=== PATIENT | female | born 1945 | race Caucasian/White ===

== ENCOUNTER 2020-11-27 08:26 | Inpatient (IN) | payer MEDICARE, OTHER ==
[~2020-11-27] VITALS: Ht 167.6 cm; Wt 74.5 kg
[~2020-11-27 08:26] MED LIST: Aspirin EC81 MG PO; Crestor20 MG PO; DEXILANT60 MG PO; LOSARTAN POTASS25 MG PO; MEGA MULTI FOR1 EACH PO; PARO20 PO; Vitamin D2000 UNIT PO
[2020-11-27 09:02] LABS: BASOPHILS ABSOLUTE AUTO 0.01 K/mm3 (0.00-0.23); BASOPHILS PERCENT AUTO 0 % (0-2); EOSINOPHILS ABSOLUTE AUTO 0.01 K/mm3 (0.00-0.68); EOSINOPHILS PERCENT AUTO 0 % (0-6); Hematocrit 37.3 % (33.0-51.0); Hemoglobin 12.8 g/dL (11.5-16.0); IMMATURE GRAN ABSOLUTE AUTO 0.03 K/mm3 (0.00-0.10); IMMATURE GRAN PERCENT AUTO 1 % (0-1); LYMPHOCYTES ABSOLUTE AUTO 0.85 K/mm3 (0.84-5.20); LYMPHOCYTES PERCENT AUTO 17 % (21-46); MONOCYTES PERCENT AUTO 8 % (4-13); Mean Corpuscular HGB 30.3 pg (26.0-34.0); Mean Corpuscular HGB Conc 34.3 g/dL (31.5-36.5); Mean Corpuscular Volume 88 fL (80-100); Mean Platelet Volume 8.9 fL (9.1-12.4); NEUTROPHILS ABSOLUTE AUTO 3.86 K/mm3 (1.96-9.15); NEUTROPHILS PERCENT AUTO 75 % (41-73); Platelet Count 177 K/mm3 (150-400); RDW Coefficient Variation 12.4 % (11.7-14.2); RDW Standard Deviation 39.8 fL (35.1-46.3); Red Blood Cell Count 4.22 M/mm3 (3.80-5.20); White Blood Cell Count 5.16 K/mm3 (4.00-11.30)
[2020-11-27] MEDS ORDERED: ATORVASTATIN CA20 MG PO (09:09)
[2020-11-27] MEDS ORDERED: Cetirizine HCl10 MG PO (09:09)
[2020-11-27 09:34] LABS: Albumin/Globulin Ratio 0.8 (0.8-1.8); Bilirubin, Total 0.4 mg/dL (0.1-1.0); Bun/Creatinine Ratio 18.3 (12.0-20.0); Creatinine, Blood 1.04 mg/dL (0.40-1.00); Globulin, Blood 3.8 g/dL (2.2-4.0); Potassium, Blood 4.5 mmol/L (3.5-5.5); Total Protein, Blood 6.8 g/dL (6.4-8.2)
[2020-11-27 12:17] LABS: PO2 Arterial 59.8 mmHg (80-100); pH Blood Arterial 7.41 (7.35-7.45)
--- NOTE | 2020-11-27 16:04 | NUR ---
1425 RECEIVED PT TO RM 310 VIA JATIN FROM ER. PT IS A&O, VERY PLEASANT AND CO-OP WITH CARE. INDEPENDENT IN AND TO [facility]. TO WITH PT, ASSISTED WITH ADMISSION, PT IS [place]. RECEIVED REPORT FROM EMILY DALAL. PT DX WITH COVID 3 DAYS AGO, BECOMING WEAKER. PT TO ER, NOW DX WITH PNM R/T COVID. IVF'S AND ABX GIVEN IN ER. SL TO . PT REPORTED THAT SHE IS DIABETIC, BUT DIET CONTROLLED. LUNGS T/O, SCRATCHY SOUNDING. PERSISTANT NPC, PER PT. CALL LT IN REACH. DENIED FURTHER NEEDS.
--- NOTE | 2020-11-28 04:07 | NUR ---
SHIFT SUMMARY A/OX4, IND IN ROOM. 1ST DOSE OF REMDESIVIR COMPLETED WITH NO ISSUES. CURRENTLY ON RA WITH SATS GREATER THAN 90. DENIES PAIN OR SOB. VSS, NO ACUTE CHANGES AT THIS TIME. BED IN LOWEST POSITION WITH CALL LIGHT IN REACH. WILL CONTINUE TO MONITOR AND REPORT TO ONCOMING RN.
[2020-11-28 04:39] LABS: Hematocrit 36.6 % (33.0-51.0); Hemoglobin 12.2 g/dL (11.5-16.0); Mean Corpuscular HGB Conc 33.3 g/dL (31.5-36.5); Mean Corpuscular Volume 90 fL (80-100); Mean Platelet Volume 8.9 fL (9.1-12.4); Platelet Count 200 K/mm3 (150-400); RDW Coefficient Variation 12.5 % (11.7-14.2); RDW Standard Deviation 42.1 fL (35.1-46.3); Red Blood Cell Count 4.06 M/mm3 (3.80-5.20)
[2020-11-28 04:59] LABS: Anion Gap 7 mmol/L (6-16); Blood Urea Nitrogen 16 mg/dL (8-24); Bun/Creatinine Ratio 17.5 (12.0-20.0); CO2, Blood 23 mmol/L (21-32); Calcium, Blood 7.9 mg/dL (8.5-10.1); Chloride, Blood 110 mmol/L (98-108); Creatinine, Blood 0.91 mg/dL (0.40-1.00); Glomerular Filtration Rate >60 (60-); Glucose, Blood 163 mg/dL (70-99); Potassium, Blood 4.4 mmol/L (3.5-5.5); Sodium, Blood 140 mmol/L (136-145)
--- NOTE | 2020-11-28 14:43 | NUR ---
Advance Directive(AD) education/Spiritual care visit conducted. Carina tells me her interest in an AD. I supply the AD Booklet and go over the information about it including the notary and filing process. Patient demonstrates comprhension. Patient also discusses her raman (On-line teachings from Mariann Bronson in [place]) and her recent marriage. She talks about the horrible situations she has overcome in life and the challenges the COVID virus has presented this month for her. I listen empathically and provide spiritual guidance and prayer. Patient responds well and voices that her raman has been boosted from the spiritual visit. I will continue to remain availble to patient and family.
--- NOTE | 2020-11-28 18:13 | NUR ---
PT IS A/OX3, PLEASANT AND COOPERATIVE, THE PT APPEARS TO BE BREATHING EASILY ON RA AT THIS TIME, MILDLY SOB WITH EXCERTION PER THE PT, THE PT DENIED ANY PAIN T/O THE DAY, THE WAS UP AMBULATING IND IN HER ROOM T/O THE DAY THE PHYSCIAL THERAPIST INSTRUCTED, CALL LIGHT IN REACH, WILL CONTINUE TO MONITOR AND ASSESS FOR CHANGES, PLAN IS FOR DISCHARGE TOMMOROW
--- NOTE | 2020-11-29 04:40 | NUR ---
SHIFT SUMMARY ADMITTED FOR COVID/PNEUMONIA. FULL CODE. HOPEFUL FOR DC FOLLOWING SCHEDULED REMDESIVIR INFUSION. SHE WILL THEN RETURN OUTPT FOR MORE REMDESIVIR INFUSIONS. SHE IS INDEPENDENT, A&O X4, AND ON RA. SHE LIVES WITH HER . SHE REFUSES INSULIN INJECTIONS SHE CONTROLS HER DM2 AT HOME WITH DIET. NO NEW CONCERNS THIS SHIFT.
--- NOTE | 2020-11-29 05:35 | NUR ---
PRILOSEC GIVEN EMAR HAS FROZEN IN THE ROOM AND I AM UNABLE TO GET INTO THIS PT'S EMAR AT THIS TIME TO DOCUMENT THAT I GAVE TWO CAPSULES OF PRILOSEC. I INFORMED MY DUST COLLECTOR ATTENDANT AND SHE INSTRUCTED ME TO WRITE A NOTE FOR NOW. I WILL ATTEMPT AGAIN TO CORRECT THE ENTRY TO REFLECT THAT THE MEDICATION WAS GIVEN BEFORE SHIFT CHANGE.
[2020-11-29] MEDS ORDERED: ALBU90OI INH (11:50)
[2020-11-29] MEDS ORDERED: DEXA6 PO (11:51)
[2020-11-29] MEDS ORDERED: REMDESIVIR IV (11:52)
--- NOTE | 2020-11-29 16:17 | NUR ---
PT DISCHARGED THE PT VEBALIZED UNDERSTANDING OF THE DC INSTRUCTIONS, THE PT APPEARED TO BE BREATHING EASILY AT THE TIME OF DC, THE PTS PRESCRIPTIONS WERE FAXED TO [facility] REQUESTED, A FOLLOW UP APPOINTMENT WAS MADE FOR THE PT PRIOR TO DISCHARGE, PT WAS TRANSFERED VIA WHEELCHAIR ACCOMPANIED BY THE SOLIDWORKS DESIGNER TO MEET HER
== END 2020-11-29 14:47 | disposition home or self-care (01) | DRG 177 ==
LOC: ER 08:26 → ERHOLD 08:27 → MEDS 14:31
PROVIDERS: Physician Assistant; ADMIT Internal Medicine
PROC: XW033E5 Introduction of Remdesivir Anti-infective into Peripheral Vein, Percutaneous Approach, New Technology Group 5 (ICD-10-PCS; principal; 2020-11-27)
PROC: 8E0ZXY6 Isolation (ICD-10-PCS; 2020-11-27)
DX: U07.1 COVID-19 (principal); J12.82 Pneumonia due to coronavirus disease 2019; R09.02 Hypoxemia; K21.9 Gastro-esophageal reflux disease without esophagitis; I10 Essential (primary) hypertension; E78.5 Hyperlipidemia, unspecified; E11.9 Type 2 diabetes mellitus without complications; F41.9 Anxiety disorder, unspecified; Z79.82 Long term (current) use of aspirin; Z87.891 Personal history of nicotine dependence
CPT/HCPCS: 36415; 36600; 71045; 80048; 80053; 82803; 82947; 83605; 84145; 84484; 85025; 85027; 93005; 93010; 94760; 96365; 96367; 96372; 96375; 96376; 97162; 97530; 99285-25; A9270; A9270-GY; G0378; J0456; J0696; J1100; J1650; J2405; J7030; J7050

== ENCOUNTER 2020-11-30 00:22 | Day surgery (SDC) | payer MEDICARE, OTHER ==
[~2020-11-30 00:22] MED LIST changes: +ALBU90OI INH; +ATORVASTATIN CA20 MG PO; +Cetirizine HCl10 MG PO; +DEXA6 PO; +REMDESIVIR IV
--- NOTE | 2020-11-30 17:47 | NUR ---
PT STATED ON ADMIT TO [facility] THAT SHE HAS BEEN UNABLE TO GET HER INHALER TO WORK. I ORDERED HER A SPACER FOR HER INHALER AND INSTRUCTED PT HOW TO USE. PT VERY SOB WITH AMBULATION. PT STATED SHE COUGHED UP SOME BLOOD THIS AM AND TOOK A PHOTO OF IT. PHOTO SHOWED LOTS OF MUCUS AND A SMALL AMOUNT OF BLOOD. DISCUSSED WITH PT THAT THIS IS NORMAL DUE TO HER COUGHING ALOT. BIOX 93% ON ROOM AIR.
== END 2020-11-30 18:10 | disposition home or self-care (01) ==
LOC: ATC 00:22
DX: U07.1 COVID-19 (principal); J12.82 Pneumonia due to coronavirus disease 2019; E11.9 Type 2 diabetes mellitus without complications; I10 Essential (primary) hypertension; E78.5 Hyperlipidemia, unspecified; K21.9 Gastro-esophageal reflux disease without esophagitis; Z79.82 Long term (current) use of aspirin; Z87.891 Personal history of nicotine dependence
CPT/HCPCS: 96365

== ENCOUNTER 2020-12-01 00:42 | Day surgery (SDC) | payer MEDICARE, OTHER | END 2020-12-01 17:00 | disposition home or self-care (01) | LOC: ATC 00:42 | DX: U07.1 COVID-19 (principal); J12.82 Pneumonia due to coronavirus disease 2019; E11.9 Type 2 diabetes mellitus without complications; I10 Essential (primary) hypertension; Z87.891 Personal history of nicotine dependence; K21.9 Gastro-esophageal reflux disease without esophagitis; E78.5 Hyperlipidemia, unspecified; F41.9 Anxiety disorder, unspecified | CPT/HCPCS: 96365 ==

== ENCOUNTER 2024-09-22 18:02 | Inpatient (IN) | payer MEDICARE, OTHER ==
[~2024-09-22] VITALS: Ht 167.6 cm; Wt 67.0 kg
[~2024-09-22 18:02] MED LIST changes: -ASPI81CH PO; -CLOP75 PO; -DAPAGLIFLOZIN10 MG PO; -FISH OIL 1,0001 EA10 PO; -METO25 PO; -SPIR25 PO
[2024-09-22 19:34] LABS: BASOPHILS ABSOLUTE AUTO 0.01 K/mm3 (0.00-0.23); BASOPHILS PERCENT AUTO 0 % (0-2); EOSINOPHILS ABSOLUTE AUTO 0.11 K/mm3 (0.00-0.68); EOSINOPHILS PERCENT AUTO 2 % (0-6); Hematocrit 28.9 % (33.0-51.0); Hemoglobin 9.6 g/dL (11.5-16.0); IMMATURE GRAN ABSOLUTE AUTO 0.02 K/mm3 (0.00-0.10); IMMATURE GRAN PERCENT AUTO 0 % (0-1); LYMPHOCYTES ABSOLUTE AUTO 1.17 K/mm3 (0.84-5.20); LYMPHOCYTES PERCENT AUTO 19 % (21-46); MONOCYTES ABSOLUTE AUTO 0.47 K/mm3 (0.16-1.47); MONOCYTES PERCENT AUTO 8 % (4-13); Mean Corpuscular HGB 31.4 pg (26.0-34.0); Mean Corpuscular HGB Conc 33.2 g/dL (31.5-36.5); Mean Corpuscular Volume 94 fL (80-100); Mean Platelet Volume 8.9 fL (9.1-12.4); NEUTROPHILS ABSOLUTE AUTO 4.36 K/mm3 (1.96-9.15); NEUTROPHILS PERCENT AUTO 71 % (41-73); Platelet Count 125 K/mm3 (150-400); RDW Coefficient Variation 13.2 % (11.7-14.2); RDW Standard Deviation 45.6 fL (35.1-46.3); Red Blood Cell Count 3.06 M/mm3 (3.80-5.20); White Blood Cell Count 6.14 K/mm3 (4.00-11.30)
[2024-09-22 19:46] LABS: Albumin, Blood 2.5 g/dL (3.4-5.0); Albumin/Globulin Ratio 0.9 (0.8-1.8); Bilirubin, Total 0.3 mg/dL (0.1-1.0); Bun/Creatinine Ratio 20.4 (12.0-20.0); Creatinine, Blood 0.74 mg/dL (0.40-1.00); Globulin, Blood 2.7 g/dL (2.2-4.0); Potassium, Blood 3.3 mmol/L (3.5-5.5); Total Protein, Blood 5.2 g/dL (6.4-8.2)
[2024-09-22] MEDS ORDERED: Potassium Chloride 20 MEQ/15 ML UDC PO ONE (20:20)
[2024-09-22] MEDS ORDERED: FLU VACC TS2024-25(6MOS UP)/PF 45 MCG/0.5 ML SYRINGE IM ONE (21:15)
[2024-09-22] MEDS ORDERED: Magnesium Hydroxide Conc 10 ML UDC PO PRN (21:15)
[2024-09-22] MEDS ORDERED: TraZODone HCl 50 MG Tab PO PRN (21:15)
[2024-09-22] MEDS ORDERED: Guaifenesin/Dextromethorphan Syrup 5 ML UDC PO PRN (21:30)
[2024-09-22 21:59] LABS: Influenza A, PCR NEGATIVE (NEGATIVE); Influenza B, PCR NEGATIVE (NEGATIVE); Resp Syncytial Virus, PCR NEGATIVE (NEGATIVE); SARS-Cov-2 (COVID-19) PCR, MMC NEGATIVE (NEGATIVE)
[2024-09-22 23:38] LABS: Percent Saturation 14.3 % (15.0-50.0); Thyroid Stimulating Hormone 1.01 uIU/mL (0.360-4.800)
[2024-09-22 23:51] VITALS: BP 144/116
[2024-09-22] MEDS ORDERED: FISH OIL 1,0001 EA10 PO ×2 (23:53)
[2024-09-23] VITALS (7 sets, daily range): BP systolic 114–163; BP diastolic 63–96
--- NOTE | 2024-09-23 02:42 | NUR ---
ER ADMIT TO PCU 6: REPORT RECIEVED FROM ISAAC RN; PT TRANSFERRED TO ROOM VIA GURENY AND TRANSFERRED TO NEW BED INDEPENDENTLY. PT ADMITTED WITH NSTEMI; ARRIVES WITH SR ON MONITOR, HR 70-80'S, SBP 140-150'S AND DENIES CHEST PAIN PRESSURE AT THIS TIME. PT DOES STATE DURING COUGHING FITS THAT MODERATE CHEST PAIN ARISES. PT ARRIVES ON RA, SPO2 94<, COARSE LUNG SOUNDS AND A CONGESTED/NON-PRODUCTIVE COUGH OBSERVED; PT DENIES SOB AT THIS TIME. PT CREWS IN BED, INDEPENDENT ADL'S. PT DENEIS OTHER PAIN COMPLAINTS. PIV TO RAC THAT IS PATENT AND SALINE LOCKED. BED LOWERED, CALL LIGHT IN REACH.
[2024-09-23 04:45] LABS: BASOPHILS ABSOLUTE AUTO 0.05 K/mm3 (0.00-0.23); BASOPHILS PERCENT AUTO 1 % (0-2); EOSINOPHILS ABSOLUTE AUTO 0.17 K/mm3 (0.00-0.68); EOSINOPHILS PERCENT AUTO 3 % (0-6); Hematocrit 40.5 % (33.0-51.0); Hemoglobin 13.9 g/dL (11.5-16.0); IMMATURE GRAN ABSOLUTE AUTO 0.05 K/mm3 (0.00-0.10); IMMATURE GRAN PERCENT AUTO 1 % (0-1); LYMPHOCYTES PERCENT AUTO 39 % (21-46); MONOCYTES ABSOLUTE AUTO 0.61 K/mm3 (0.16-1.47); MONOCYTES PERCENT AUTO 10 % (4-13); Mean Corpuscular HGB 29.9 pg (26.0-34.0); Mean Corpuscular HGB Conc 34.3 g/dL (31.5-36.5); Mean Platelet Volume 9.1 fL (9.1-12.4); NEUTROPHILS ABSOLUTE AUTO 2.99 K/mm3 (1.96-9.15); NEUTROPHILS PERCENT AUTO 47 % (41-73); Platelet Count 165 K/mm3 (150-400); RDW Standard Deviation 41.4 fL (35.1-46.3); Red Blood Cell Count 4.65 M/mm3 (3.80-5.20); White Blood Cell Count 6.37 K/mm3 (4.00-11.30)
[2024-09-23 05:18] LABS: Albumin/Globulin Ratio 0.9 (0.8-1.8); Bilirubin, Total 0.3 mg/dL (0.1-1.0); Bun/Creatinine Ratio 23.4 (12.0-20.0); Calcium, Blood 8.6 mg/dL (8.5-10.1); Creatinine, Blood 0.94 mg/dL (0.40-1.00); Globulin, Blood 3.3 g/dL (2.2-4.0); Potassium, Blood 4.2 mmol/L (3.5-5.5); Total Protein, Blood 6.3 g/dL (6.4-8.2)
[2024-09-23 05:25] LABS: Mean Corpuscular Volume 87 fL (80-100)
[2024-09-23] MEDS ORDERED: Omeprazole 20 MG CapCR PO SCH (06:00)
[2024-09-23] MEDS ORDERED: Enoxaparin 40 MG/0.4 ML SYR SC SCH (09:00)
[2024-09-23] MEDS ORDERED: Empagliflozin 10 MG TAB PO SCH (09:00)
[2024-09-23] MEDS ORDERED: Aspirin 81 MG Chew PO SCH (09:00)
[2024-09-23] MEDS ORDERED: Losartan Potassium 25 MG Tab PO SCH (09:00)
[2024-09-23] MEDS ORDERED: PARoxetine HCl 20 MG Tab PO SCH (09:00)
[2024-09-23] MEDS ORDERED: Atorvastatin 40 MG Tab PO SCH (09:00)
[2024-09-23] MEDS ORDERED: Metoprolol Tartrate 25 MG Tab PO SCH (09:00)
--- NOTE | 2024-09-23 09:42 | NUR ---
Pt is alert, oriented and pleasantly conversant. States is bringing in her home medications to check them with our list, but says she knows that she won't take any meds from home, only ones given to her by RN. Denies diffuse chest pain which she was having a couple of nights before coming into ED. States she is having sharp pain with every cough on her rigth lower chest. Given an incentive spirometer and instructed on its use. She demonstrated correct use of it and has been using it on her own now. Dr. Epps with Dr. Chiu here to see the patient for cardiology consult. Pt remains NPO
[2024-09-23] MEDS ORDERED: Clopidogrel Bisulfate 300 MG Cap PO ONE (10:15)
[2024-09-23] MEDS ORDERED: DAPAGLIFLOZIN10 MG PO ×2 (10:32)
[2024-09-23 10:58] LABS: International Normalized Ratio 0.97; Prothrombin Time Results 10.4 Sec (9.7-11.5)
[2024-09-23] MEDS ORDERED: Spironolactone 12.5 MG TAB PO SCH (11:00)
[2024-09-23] MEDS ORDERED: Spironolactone 25 MG Tab PO SCH (11:01)
[2024-09-23] MEDS ORDERED: Heparin Sodium,Porcine/0.5 NS 500 ML IV SCH (11:15)
[2024-09-23] MEDS ORDERED: Heparin Sodium 5000 Units/ML 1ML MDV IV ONE (11:15)
--- NOTE | 2024-09-23 11:38 | NUR ---
Pt took shower, tolerated very well. Ambualtory in the room without any difficulty. Occasionally has a cough, still not expectorating anything, but she is using the incentive spirometer as encouraged. Plan for medical management with cardiology
[2024-09-23] MEDS ORDERED: Dose Adjust by Pharmacy XX STA (21:03)
[2024-09-24 03:30] VITALS: BP 135/70
[2024-09-24 04:43] LABS: BASOPHILS ABSOLUTE AUTO 0.03 K/mm3 (0.00-0.23); BASOPHILS PERCENT AUTO 1 % (0-2); EOSINOPHILS ABSOLUTE AUTO 0.12 K/mm3 (0.00-0.68); EOSINOPHILS PERCENT AUTO 2 % (0-6); Hematocrit 41.4 % (33.0-51.0); Hemoglobin 13.8 g/dL (11.5-16.0); IMMATURE GRAN ABSOLUTE AUTO 0.02 K/mm3 (0.00-0.10); IMMATURE GRAN PERCENT AUTO 0 % (0-1); LYMPHOCYTES PERCENT AUTO 47 % (21-46); MONOCYTES ABSOLUTE AUTO 0.54 K/mm3 (0.16-1.47); MONOCYTES PERCENT AUTO 9 % (4-13); Mean Corpuscular HGB 30.1 pg (26.0-34.0); Mean Corpuscular HGB Conc 33.3 g/dL (31.5-36.5); Mean Corpuscular Volume 90 fL (80-100); Mean Platelet Volume 9.2 fL (9.1-12.4); NEUTROPHILS ABSOLUTE AUTO 2.61 K/mm3 (1.96-9.15); NEUTROPHILS PERCENT AUTO 42 % (41-73); Platelet Count 200 K/mm3 (150-400); RDW Coefficient Variation 13.2 % (11.7-14.2); RDW Standard Deviation 43.5 fL (35.1-46.3); Red Blood Cell Count 4.58 M/mm3 (3.80-5.20); White Blood Cell Count 6.22 K/mm3 (4.00-11.30)
--- NOTE | 2024-09-24 04:46 | NUR ---
SHIFT SUMMARY ALERT AND ORIENTED, VERBALIZES NEEDS, USES CALL LIGHT APPROPRIATELY, OBEYS COMMANDS. PT ENDORSES RIGHT RIB PAIN ATTRIBUTED TO COUGHING. SINUS RHYTHM, CESAR AT TIMES INTO THE 50'S. PT DENIES CHEST PAIN/PRESSURE. REMAINING ON ROOM T/O SHIFT, SATTING ABOVE 90%. OCCASIONAL NONPRODUCTIVE COUGH. REMOVED R AC IV DUE TO OCCLUSIVE ISSUES, L FA IV PLACED. HEPARIN INFUSION TITRATED TO 13U/KG/HR PER PHARMACY AND RUNNING CURRENTLY. NO ACUTE EVENTS THIS SHIFT.
[2024-09-24] MEDS ORDERED: Clarify Drug Order XX ONE (05:10)
[2024-09-24] MEDS ORDERED: Pantoprazole Sodium 40 MG Tab PO SCH (06:00)
--- NOTE | 2024-09-24 08:17 | NUR ---
Bedside shift report from KATLIN Henderson at 0715. Pt appears to be sleeping comfortably, NSR by telemetry at bedside. Heparin gtt verified with the eMAR.
--- NOTE | 2024-09-24 08:32 | NUR ---
Dr. Langford is here to see the patient.
[2024-09-24 08:33] VITALS: BP 131/67
[2024-09-24] MEDS ORDERED: Aspirin 81 MG Chew PO SCH (09:00)
[2024-09-24] MEDS ORDERED: Spironolactone 25 MG Tab PO SCH (09:00)
[2024-09-24] MEDS ORDERED: Clopidogrel Bisulfate 75 MG Tab PO SCH (09:00)
[2024-09-24] MEDS ORDERED: Dose Adjust by Pharmacy XX STA ×2 (10:49→18:00)
[2024-09-24 10:58] VITALS: BP 114/66
--- NOTE | 2024-09-24 16:16 | NUR ---
Pt c/o bad acid reflux, which she often has. States it is not at all like the symptoms which brought her to the hospital. No diaphoresis, no changes in heart rate/rhythm. She is sitting on the side of the bed, respirations even and unlabored. STates that she can tolerate it but would like some baking soda or TUMS for relief. Call to the attending MD. New order for TUMS from Dr. Catherine.
[2024-09-24] MEDS ORDERED: Calcium Carbonate 500 MG Tab Chew PO ONE (16:20)
[2024-09-24 16:41] VITALS: BP 128/66
--- NOTE | 2024-09-24 17:28 | NUR ---
The pt has been pain free all day, until this evening with her heart burn. She ambulated up and down the hallway with the CAGE CASHIER in the afternoon, without any symptoms. Normal sinus rhythm in 60s most of the day, occasionally sinus bradycardia in 50s while sleeping. Her lungs have a lot of crackles, but are less diminished than yesterday. She continues to have a frequent cough Heparin gtt ongoing, now at 14 u/kg/hour.
[2024-09-24 20:01] VITALS: BP 119/69
[2024-09-24 23:36] VITALS: BP 139/65
[2024-09-25 04:54] VITALS: BP 115/65
--- NOTE | 2024-09-25 05:08 | NUR ---
SHIFT SUMMARY PT A/OX4. SATTING ABOVE 90% ON ROOM AIR. INDEPENDENT IN THE ROOM. HEPARIN GTT RUNNING AT 14U/KG/HR. VSS. NO ACUTE EVENTS THIS SHIFT.
[2024-09-25] MEDS ORDERED: Dose Adjust by Pharmacy XX STA (07:13)
[2024-09-25 07:27] VITALS: BP 118/72
--- NOTE | 2024-09-25 07:54 | NUR ---
Bedside shift report from KATLIN Henderson. Heparin gtt verified. New order from pharmacy to continue at present dose. IV site is WNL. Pt awakens easily for vital signs, noted stable, BP normalizing from being elevated 2 days ago. Sins bradycardia 56 bpm noted by bedside telemetry noted.
[2024-09-25 09:49] LABS: Hematocrit 37.4 % (33.0-51.0); Hemoglobin 12.5 g/dL (11.5-16.0); Mean Platelet Volume 9.2 fL (9.1-12.4); Platelet Count 234 K/mm3 (150-400)
[2024-09-25 12:43] VITALS: BP 115/68
[2024-09-25] MEDS ORDERED: ASPI81CH PO ×2 (13:38)
[2024-09-25] MEDS ORDERED: CLOP75 PO ×2 (13:41)
[2024-09-25] MEDS ORDERED: METO25 PO ×2 (13:42)
[2024-09-25] MEDS ORDERED: SPIR25 PO ×2 (13:42)
--- NOTE | 2024-09-25 14:21 | NUR ---
DISCHARGE THIS RN WENT OVER DISCHARGE EDUCATION AND NEW MEDICATIONS WITH PATIENT AND . PATIENT AND VERBALIZED UNDERSTANDING. THIS RN WENT OVER FOLLOW UP APPOINTMENTS AND PATIENT VERBALIZD UNDERSTANDING. PATIENT LEFT WITH ALL BELONGINGS AND IN NO DISTRESS
== END 2024-09-25 14:13 | disposition home or self-care (01) | DRG 282 ==
LOC: ER 18:02 → ERHOLD 21:10 → PCU 21:10
PROVIDERS: Internal Medicine Cardiovascular Disease; Student in an Organized Health Care Education/Training Program; ADMIT Internal Medicine
DX: I21.4 Non-ST elevation (NSTEMI) myocardial infarction (principal); Z66 Do not resuscitate; D69.6 Thrombocytopenia, unspecified; E83.51 Hypocalcemia; D64.9 Anemia, unspecified; I10 Essential (primary) hypertension; E78.5 Hyperlipidemia, unspecified; E11.9 Type 2 diabetes mellitus without complications; I27.20 Pulmonary hypertension, unspecified; K21.9 Gastro-esophageal reflux disease without esophagitis; J45.909 Unspecified asthma, uncomplicated; K44.9 Diaphragmatic hernia without obstruction or gangrene; E87.6 Hypokalemia; Z28.21 Immunization not carried out because of patient refusal; I36.1 Nonrheumatic tricuspid (valve) insufficiency; J06.9 Acute upper respiratory infection, unspecified; Z98.890 Other specified postprocedural states; Z87.891 Personal history of nicotine dependence; Z79.899 Other long term (current) drug therapy; Z79.82 Long term (current) use of aspirin; Z79.84 Long term (current) use of oral hypoglycemic drugs; Z79.02 Long term (current) use of antithrombotics/antiplatelets
CPT/HCPCS: 0241U; 36415; 71045; 80053; 82607; 82728; 82746; 83540; 83550; 84443; 84484; 85014; 85018; 85025; 85049; 85610; 85730; 93005; 93010; 93306; 99285-25; A9270; J1644; J1650

== ENCOUNTER → 2024-09-22 | Outpatient (CLI) | payer MEDICARE, OTHER ==
[~2024-09-22] MED LIST changes: +ASPI81CH PO; +CLOP75 PO; +DAPAGLIFLOZIN10 MG PO; +FISH OIL 1,0001 EA10 PO; +METO25 PO; +SPIR25 PO
[2024-09-22 17:11] LABS: BASOPHILS ABSOLUTE AUTO 0.02 K/mm3 (0.00-0.23); BASOPHILS PERCENT AUTO 0 % (0-2); EOSINOPHILS ABSOLUTE AUTO 0.22 K/mm3 (0.00-0.68); EOSINOPHILS PERCENT AUTO 3 % (0-6); Hematocrit 45.2 % (33.0-51.0); Hemoglobin 14.9 g/dL (11.5-16.0); IMMATURE GRAN ABSOLUTE AUTO 0.03 K/mm3 (0.00-0.10); IMMATURE GRAN PERCENT AUTO 0 % (0-1); LYMPHOCYTES PERCENT AUTO 18 % (21-46); MONOCYTES ABSOLUTE AUTO 0.72 K/mm3 (0.16-1.47); MONOCYTES PERCENT AUTO 8 % (4-13); Mean Corpuscular HGB 30.1 pg (26.0-34.0); Mean Corpuscular Volume 91 fL (80-100); Mean Platelet Volume 8.8 fL (9.1-12.4); NEUTROPHILS ABSOLUTE AUTO 6.36 K/mm3 (1.96-9.15); NEUTROPHILS PERCENT AUTO 71 % (41-73); Platelet Count 195 K/mm3 (150-400); RDW Coefficient Variation 13.2 % (11.7-14.2); RDW Standard Deviation 44.2 fL (35.1-46.3); Red Blood Cell Count 4.95 M/mm3 (3.80-5.20); White Blood Cell Count 8.95 K/mm3 (4.00-11.30)
[2024-09-22 17:23] LABS: Albumin, Blood 3.7 g/dL (3.4-5.0); Bilirubin, Total 0.5 mg/dL (0.1-1.0); Bun/Creatinine Ratio 15.8 (12.0-20.0); Calcium, Blood 9.4 mg/dL (8.5-10.1); Creatinine, Blood 1.14 mg/dL (0.40-1.00); Globulin, Blood 3.6 g/dL (2.2-4.0); Potassium, Blood 4.2 mmol/L (3.5-5.5); Total Protein, Blood 7.3 g/dL (6.4-8.2)
== END | disposition home or self-care (01) ==
LOC: LAB SHORT 17:07
PROVIDERS: Physician Assistant
DX: R07.9 Chest pain, unspecified (principal)
CPT/HCPCS: 80053; 84484; 85025